=== PATIENT | male | born 1975 | race Caucasian/White ===

== ENCOUNTER 2020-08-16 00:59 | Inpatient (IN) | payer MEDICAID ==
[~2020-08-16] VITALS: Ht 185.4 cm; Wt 128.6 kg
[2020-08-16] MEDS ORDERED: SODIUM CHLORIDE 0.9% 1,000ML IVBOLUS ONE (01:30)
[2020-08-16] MEDS ORDERED: SODIUM CHLORIDE FLUSH 10ML SYR IVF ONE (01:30)
[2020-08-16 01:55] LABS: BASOPHILS % (AUTO) 1 % (0-1); EOSINOPHILS % (AUTO) 2 % (1-7); LYMPHOCYTES % (AUTO) 32 % (22-44); MEAN CORPUSCULAR HEMOGLOBIN 29.8 pg (27.5-34.5); MEAN CORPUSCULAR HGB CONC 33.8 g/dL (33.2-36.2); MEAN PLATELET VOLUME 7.1 fL (7.4-10.4); MONOCYTES % (AUTO) 8 % (2-9); NEUTROPHILS % (AUTO) 57 % (42-75); PLATELET COUNT 323 x10^3/uL (130-400); RED BLOOD COUNT 4.81 x10^6/uL (4.38-5.82); RED CELL DISTRIBUTION WIDTH 12.8 % (9.4-14.8)
[2020-08-16] MEDS ORDERED: VANCOMYCIN 2,500 MG in SODIUM CHLORIDE 0.9% 500 ML IV ONE (02:00)
[2020-08-16] MEDS ORDERED: AMPICILLIN/SULBACTAM 3 GM in SODIUM CHLORIDE 0.9% 100 ML IV ONE (02:00)
[2020-08-16] MEDS ORDERED: VANCOMYCIN PER PHARMACY MC PRN ×2 (02:00→04:30)
[2020-08-16 02:01] LABS: MD NO
[2020-08-16 02:02] LABS: HCT (SEDRATE) 42.3 % (39.2-51.8)
[2020-08-16 02:07] LABS: ALANINE AMINOTRANSFERASE 27 U/L (12-78); ALBUMIN 2.6 g/dL (3.4-5.0); ANION GAP 6 mmol/L (5-15); CHLORIDE 99 mmol/L (98-107); CREATININE 0.81 mg/dL (0.7-1.3)
[2020-08-16 02:14] LABS: ALKALINE PHOSPHATASE 76 U/L (45-117); BILIRUBIN,TOTAL 0.2 mg/dL (0.2-1.0); TOTAL PROTEIN 6.9 g/dL (6.4-8.2)
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
[2020-08-16] MEDS ORDERED: INSULIN REGULAR 100 UNITS/ML, 3ML VIAL IVPush ONE (03:00)
[2020-08-16] MEDS ORDERED: INSULIN SINGLE DOSE, ER ONE (03:06)
[2020-08-16] MEDS ORDERED: GABAPENTIN 300 MG CAPSULE PO PRN (04:30)
[2020-08-16] MEDS ORDERED: morphine SULFATE 10 MG/ML, 1ML IVPush PRN (04:30)
[2020-08-16] MEDS ORDERED: MELATONIN 5 MG TABLET PO PRN (04:30)
[2020-08-16] MEDS ORDERED: ENALAPRILAT 1.25 MG/ML, 2ML IVPush PRN (04:30)
[2020-08-16] MEDS ORDERED: ACETAMINOPHEN 325 MG TABLET PO PRN (04:30)
[2020-08-16] MEDS ORDERED: ONDANSETRON 2MG/ML, 2ML IVPush PRN (04:30)
[2020-08-16 04:35] VITALS: BP 117/81
[2020-08-16] MEDS ORDERED: PHARMACOKINETIC CONSULTATION MC ONE (05:30)
[2020-08-16] MEDS ORDERED: PHARMACOKINETIC MONITORING MC PRN (05:30)
[2020-08-16] MEDS: PIPERACILLIN/TAZO 3.375 GM in DEXTROSE 5% 50 ML IV SCH ×4 (05:33→22:16)
[2020-08-16] MEDS: SODIUM CHLORIDE 0.9% 1,000 ML IV SCH ×3 (05:33→22:16)
[2020-08-16 08:14] VITALS: BP 130/87
[2020-08-16] MEDS: SENNA/DOCUSATE TABLET PO SCH (09:00)
[2020-08-16] MEDS: INSULIN LISPRO 100 UNITS/ML, PEN SQ-INSULIN SCH ×4 (09:26→20:01)
[2020-08-16] MEDS ORDERED: NICOTINE 21 MG/24 HR PATCH.TD24 TD ONE (11:00)
[2020-08-16] MEDS: INSULIN GLARGINE 100 UNITS/ML, PEN SQ-INSULIN SCH (11:37)
[2020-08-16] MEDS: VANCOMYCIN 2,300 MG in SODIUM CHLORIDE 0.9% 500 ML IV SCH ×2 (12:12→23:35)
[2020-08-16] MEDS ORDERED: OXYcodone IR 5MG TABLET PO PRN (12:30)
[2020-08-16 13:26] VITALS: BP 136/81
[2020-08-16] MEDS ORDERED: GADOTERATE 7.5 MMOL/15ML SYR ONE (14:12)
[2020-08-16] MEDS ORDERED: GADOTERATE 5 MMOL/10ML SYR ONE (14:12)
[2020-08-16 18:58] VITALS: BP 115/74
[2020-08-17 00:04] VITALS: BP 126/84
[2020-08-17] MEDS: PIPERACILLIN/TAZO 3.375 GM in DEXTROSE 5% 50 ML IV SCH ×2 (04:07→10:52)
[2020-08-17 05:54] LABS: BASOPHILS % (AUTO) 1 % (0-1); EOSINOPHILS % (AUTO) 2 % (1-7); LYMPHOCYTES % (AUTO) 30 % (22-44); MEAN CORPUSCULAR HEMOGLOBIN 29.7 pg (27.5-34.5); MEAN CORPUSCULAR HGB CONC 33.9 g/dL (33.2-36.2); MEAN PLATELET VOLUME 7.1 fL (7.4-10.4); MONOCYTES % (AUTO) 7 % (2-9); NEUTROPHILS % (AUTO) 61 % (42-75); PLATELET COUNT 285 x10^3/uL (130-400); RED BLOOD COUNT 4.83 x10^6/uL (4.38-5.82); RED CELL DISTRIBUTION WIDTH 12.9 % (9.4-14.8)
[2020-08-17 05:55] LABS: MD NO
[2020-08-17 06:03] LABS: ANION GAP 8 mmol/L (5-15); CALCIUM 8.3 mg/dL (8.5-10.1); CHLORIDE 105 mmol/L (98-107); CHOLESTEROL, TOTAL 203 mg/dL (140-239); CREATININE 0.65 mg/dL (0.7-1.3); TRIGLYCERIDES 237 mg/dL (50-200); VLDL CHOLESTEROL 47 mg/dL (0-25)
[2020-08-17 06:05] LABS: CHOL/HDL RATIO 9.2; HDL CHOL % 11 % (26-37); HDL CHOLESTEROL (DIRECT) 22 mg/dL (40-60); LDL CHOLESTEROL,CALCULATED 134 mg/dL (54-169); LDL/HDL RATIO 6.1 (0.5-3.0)
[2020-08-17] MEDS: INSULIN LISPRO 100 UNITS/ML, PEN SQ-INSULIN SCH ×2 (07:29→11:21)
[2020-08-17 08:32] VITALS: BP 116/80
[2020-08-17] MEDS: SODIUM CHLORIDE 0.9% 1,000 ML IV SCH (08:41)
[2020-08-17] MEDS ORDERED: NICOTINE 21 MG/24 HR PATCH.TD24 TD SCH (09:00)
[2020-08-17] MEDS: INSULIN GLARGINE 100 UNITS/ML, PEN SQ-INSULIN SCH (09:21)
[2020-08-17] MEDS: SENNA/DOCUSATE TABLET PO SCH (09:22)
[2020-08-17] MEDS: VANCOMYCIN 2,300 MG in SODIUM CHLORIDE 0.9% 500 ML IV SCH (12:00)
[2020-08-17] MEDS ORDERED: INSULIN GLARGINE 100 UNITS/ML, PEN SQ-INSULIN SCH (21:00)
== END 2020-08-18 08:28 | disposition left against medical advice (07) | DRG 197 ==
LOC: ED 01:29 → EDIP 03:34 → 3N 03:50 → UNDODISIN 08-17 12:27
PROVIDERS: ADMIT Family Medicine; ATTEND Internal Medicine
DX: E11.51 Type 2 diabetes mellitus with diabetic peripheral angiopathy without gangrene (principal); E11.621 Type 2 diabetes mellitus with foot ulcer; M86.172 Other acute osteomyelitis, left ankle and foot; E11.65 Type 2 diabetes mellitus with hyperglycemia; E11.628 Type 2 diabetes mellitus with other skin complications; E11.69 Type 2 diabetes mellitus with other specified complication; E66.9 Obesity, unspecified; M65.9 Synovitis and tenosynovitis, unspecified; G62.9 Polyneuropathy, unspecified; F17.210 Nicotine dependence, cigarettes, uncomplicated; L03.116 Cellulitis of left lower limb; Z68.37 Body mass index [BMI] 37.0-37.9, adult; Z91.19 Patient's noncompliance with other medical treatment and regimen
CPT/HCPCS: 36415; 80048; 80053; 80061; 82962; 83036; 83605; 84145; 85025; 85651; 86140; 87040; 87070; 87077; 87186; 87205; 93922; 96374; G0378; J1815; J2543; J3370; A9575; J7030; J7040

== ENCOUNTER 2020-08-18 02:11 | Inpatient (IN) | payer MEDICAID ==
[~2020-08-18] VITALS: Ht 185.4 cm; Wt 127.4 kg
[2020-08-18] MEDS ORDERED: SODIUM CHLORIDE 0.9% 1,000ML IVBOLUS ONE (02:30)
[2020-08-18] MEDS ORDERED: AMPICILLIN/SULBACTAM 3 GM in SODIUM CHLORIDE 0.9% 100 ML IV ONE (02:30)
[2020-08-18] MEDS ORDERED: SODIUM CHLORIDE FLUSH 10ML SYR IVF ONE (02:30)
[2020-08-18] MEDS ORDERED: VANCOMYCIN PER PHARMACY MC PRN ×2 (02:30→06:30)
[2020-08-18] MEDS ORDERED: VANCOMYCIN 2,500 MG in SODIUM CHLORIDE 0.9% 500 ML IV ONE (03:00)
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
--- NOTE | 2020-08-18 03:36 | NUR ---
FSBS [id number]
--- NOTE | 2020-08-18 03:46 | NUR ---
REPORT TO POLY HERNANDEZ SBAR.
[2020-08-18 04:05] VITALS: BP 100/65
[2020-08-18] MEDS ORDERED: PHARMACOKINETIC MONITORING MC PRN (06:30)
[2020-08-18] MEDS ORDERED: HYDROcodone/APAP 5/325 TABLET PO PRN (06:30)
[2020-08-18] MEDS ORDERED: ACETAMINOPHEN 325 MG TABLET PO PRN ×2 (06:30→12:00)
[2020-08-18] MEDS ORDERED: ONDANSETRON 2MG/ML, 2ML IVPush PRN ×2 (06:30→12:00)
[2020-08-18] MEDS ORDERED: AMPICILLIN/SULBACTAM 3 GM in SODIUM CHLORIDE 0.9% 100 ML IV SCH (06:30)
[2020-08-18] MEDS ORDERED: hydrALAzine 20 MG/ML, 1ML IVPush PRN (06:30)
[2020-08-18] MEDS ORDERED: PHARMACOKINETIC CONSULTATION MC ONE (06:30)
[2020-08-18] MEDS ORDERED: SODIUM CHLORIDE 0.9% 1,000 ML IV SCH (06:30)
[2020-08-18] MEDS: INSULIN LISPRO 100 UNITS/ML, PEN SQ-INSULIN SCH ×2 (07:42→11:00)
[2020-08-18 08:13] VITALS: BP 134/83
[2020-08-18] MEDS ORDERED: FENTANYL PF 250 MCG/5ML ONE (08:34)
[2020-08-18] MEDS ORDERED: MIDAZOLAM 1 MG/ML, 2ML ONE ×2 (08:34→11:15)
[2020-08-18] MEDS ORDERED: INSULIN GLARGINE 100 UNITS/ML, PEN SQ-INSULIN SCH (09:00)
[2020-08-18] MEDS ORDERED: CHLORHEXIDINE 15 ML UDC ONE (09:27)
[2020-08-18] MEDS ORDERED: CHLORHEXIDINE 15 ML UDC PO ONE (09:30)
[2020-08-18 09:49] LABS: AMPHETAMINE SCREEN, URINE Positive (Negative); BARBITURATE SCREEN, URINE Negative (Negative); BENZODIAZEPINE SCREEN, URINE Negative (Negative); CANNABINOID SCREEN, URINE Negative (Negative); COCAINE SCREEN, URINE Negative (Negative); METHADONE SCREEN, URINE Negative (Negative); OPIATE SCREEN, URINE Negative (Negative)
[2020-08-18 09:55] LABS: ANION GAP 6 mmol/L (5-15); CALCIUM 8.9 mg/dL (8.5-10.1); CHLORIDE 105 mmol/L (98-107)
[2020-08-18 09:57] LABS: CREATININE 0.77 mg/dL (0.7-1.3)
[2020-08-18 10:08] LABS: BASOPHILS % (AUTO) 1 % (0-1); EOSINOPHILS % (AUTO) 1 % (1-7); LYMPHOCYTES % (AUTO) 25 % (22-44); MEAN CORPUSCULAR HEMOGLOBIN 29.7 pg (27.5-34.5); MEAN CORPUSCULAR HGB CONC 33.9 g/dL (33.2-36.2); MONOCYTES % (AUTO) 8 % (2-9); NEUTROPHILS % (AUTO) 65 % (42-75); PLATELET COUNT 305 x10^3/uL (130-400); RED BLOOD COUNT 4.76 x10^6/uL (4.38-5.82); RED CELL DISTRIBUTION WIDTH 12.9 % (9.4-14.8)
[2020-08-18 10:13] LABS: MD NO
[2020-08-18] MEDS ORDERED: GLYCOPYRROLATE 0.2MG/1ML, 5ML ONE (10:21)
[2020-08-18] MEDS ORDERED: SUCCINYLCHOLINE 20 MG/ML, 10ML ONE (10:21)
[2020-08-18] MEDS ORDERED: DEXAMETHASONE 4 MG/ML, 1ML ONE (10:21)
[2020-08-18] MEDS ORDERED: PROPOFOL 10 MG/ML, 20ML ONE (10:21)
[2020-08-18] MEDS ORDERED: CEFAZOLIN 1,000 MG ONE (10:21)
[2020-08-18] MEDS ORDERED: ONDANSETRON 2MG/ML, 2ML ONE (10:21)
[2020-08-18] MEDS ORDERED: NEOSTIGMINE 1 MG/ML, 10ML ONE (10:21)
[2020-08-18] MEDS ORDERED: ROCURONIUM 10MG/ML,5ML ONE (10:21)
[2020-08-18] MEDS ORDERED: FENTANYL PF 100 MCG/2ML ONE ×3 (11:14→12:17)
[2020-08-18] MEDS ORDERED: HALOPERIDOL 5 MG/ML IV PRN (12:00)
[2020-08-18] MEDS ORDERED: HYDROmorphone 1 MG/ML, 1ML INJ IVPush PRN (12:00)
[2020-08-18] MEDS ORDERED: OXYcodone 5 MG/5 ML ORAL.SOL UDC PO PRN (12:00)
[2020-08-18] MEDS ORDERED: PROMETHAZINE 25 MG/ML, 1ML IVPush PRN (12:00)
[2020-08-18] MEDS ORDERED: MEPERIDINE/PF 25MG/0.5ML IVPush PRN (12:00)
[2020-08-18] MEDS ORDERED: LORazepam 2 MG/ML, 1ML IVPush PRN (12:00)
[2020-08-18] MEDS: VANCOMYCIN 2,400 MG in SODIUM CHLORIDE 0.9% 500 ML IV SCH ×2 (12:00→14:13)
[2020-08-18] MEDS ORDERED: FENTANYL PF 100 MCG/2ML IV PRN (12:00)
[2020-08-18] MEDS ORDERED: PROMETHAZINE 25 MG/ML, 1ML ONE (12:17)
[2020-08-18 13:37] VITALS: BP 121/82
== END 2020-08-18 15:30 | disposition left against medical advice (07) | DRG 314 ==
LOC: ED 02:56 → EDIP 03:28 → 3N 03:53
PROVIDERS: ADMIT Family Medicine; ATTEND Internal Medicine
PROC: 0Y6S0Z0 Detachment at Left 2nd Toe, Complete, Open Approach (ICD-10-PCS; principal; 2020-08-18 10:30)
DX: E11.69 Type 2 diabetes mellitus with other specified complication (principal); E11.40 Type 2 diabetes mellitus with diabetic neuropathy, unspecified; M86.172 Other acute osteomyelitis, left ankle and foot; E11.52 Type 2 diabetes mellitus with diabetic peripheral angiopathy with gangrene; E11.65 Type 2 diabetes mellitus with hyperglycemia; E11.628 Type 2 diabetes mellitus with other skin complications; E66.9 Obesity, unspecified; F17.210 Nicotine dependence, cigarettes, uncomplicated; L03.116 Cellulitis of left lower limb; M65.9 Synovitis and tenosynovitis, unspecified; Z53.29 Procedure and treatment not carried out because of patient's decision for other reasons; Z20.822 Contact with and (suspected) exposure to COVID-19; Z91.19 Patient's noncompliance with other medical treatment and regimen; Z91.14 Patient's other noncompliance with medication regimen; Z68.37 Body mass index [BMI] 37.0-37.9, adult
CPT/HCPCS: 80048; 80307; 82962; 83735; 85025; 87070; 87075; 87077; 87147; 87205; 87635; 88305; 96361; 96365; G0378; J0295; J0690; J1100; J2250; J2405; J2704; J2710; J3010; J3370; J0330; J7030; J7040